=== PATIENT | male | born 1990 | race Caucasian/White ===

== ENCOUNTER 2019-02-27 09:40 | Outpatient (CLI) | payer OTHER, MEDICAID, SELFPAY ==
[2019-02-27] VITALS (8 sets, daily range): BP systolic 102–127; BP diastolic 59–74; PULSE 54–65; RESP 16; TEMP 36.4; O2SAT 97–100
--- NOTE | 2019-02-27 09:43 | DI.RAD.S_ITS ---
PROCEDURE: PAIN L/S TRANSFORAMINAL INJECT INDICATIONS: RADICULOPATHY FINDINGS: Fluoroscopic spot filming was performed to verify placement of spinal needles at the left L5-S1 level(s), as labeled on the films. Appropriate location(s) of the needle tip(s) was confirmed by injection of iodinated contrast. IMPRESSION: Successful needle tip localization at the left L5-S1 neural foramen for perineural epidural steroid injection. Dictated by: Misael Kam M.D. on 02/27/2019 at 11:44 Approved by: Misael Kam M.D. on 02/27/2019 at 11:45
[2019-02-27] MEDS: MIDAZOLAM 5 MG/5 ML VIAL IV (10:20)
[2019-02-27] MEDS: fentaNYL 100 MCG/2 ML INJ 50 MCG IV (10:20)
[2019-02-27] MEDS: IOPAMIDOL 15 ML VIAL 3 ML INJ (10:28)
[2019-02-27] MEDS: BUPIVACAINE 0.25% (PF) VIAL 2 ML INJ (10:29)
[2019-02-27] MEDS: BETAMETHASONE 30 MG/5 ML MDV 6 MG INJ (10:29)
[2019-02-27] MEDS: DEXAMETHASONE 10 MG/ML VIAL 20 MG INJ (10:29)
--- NOTE | 2019-02-27 10:40 | PC.NURSE ---
pt tolerated procedure well. Able to get off table with standby assist only. Transferred pt to pre procedure room via wheelchair for continued monitoring with Tiffany MILLER.
--- NOTE | 2019-02-27 10:42 | P.PCN_ITS ---
Procedures Date/Time Date of procedure: 02/27/19 Time of procedure: 10:41 General Procedure description: PREOP DIAGNOSIS 1. FORMAINAL STENOSIS WITH LE SYMPTOMS POST OP DIAGNOSIS 1. FORMAINAL STENOSIS WITH LE SYMPTOMS PROCEDURES 1. FLUOROSCOPICALLY GUIDED CONTRAST CONTROLLED TRANSFORAMINAL EPIDURAL STEROID INJECTION - Left L5/S1 PHYSICIAN: Orestes Cárdenas DO INDICATIONS: Ishaan is referred by Dr. Caballero for treatment of HNP with Left LE Symptoms FINDINGS Foraminal Nerve Root Compression secondary to disc disease and facet hypertrophy DESCRIPTION OF PROCEDURE: Following denial of allergy and review of potential side effects and complications, including, but not necessarily limited to, infection, allergic reaction, local tissue breakdown, stroke, temporary or permanent nerve injury, paralysis, and possible , the patient indicated that the patient understood and agreed to proceed. An informed consent document was signed by the patient, witnessed by a nurse, and placed in the patient's chart. Additionally, other tr eatment options including medications, modalities, and physical therapy were reviewed with the patient. After review of previous anaesthesic history and IV conscious sedation the patient was deemed safe to proceed with todays procedure with IV conscious sedation as ASA class II designation. Safety time-out was performed to confirm patient ID, procedure to be performed and site of procedure. IV sedation was accomplished with a combination of 3mg of Versed and 50mcg of Fentanyl was administered by the RN after DO order, titrated to patient comfort during the course of the procedure while the patient remained responsive to all verbal commands In the prone position following sterile prep and drape of the lumbar region, the Left L5/S1 posterior neuroforamen was identified fluoroscopically. The skin was anesthetized via a 25-gauge 1.5-inch needle with 1% lidocaine solution. At this point, a 25-gauge 3.5-inch spinal needle was atraumatically introduced and advanced under fluoroscopic guidance through the posterior Left L5/S1 neuroforamen to approximately the anterior aspect of the canal. Depth was confirmed on lateral view. Following negative aspiration, injection of approximately 1.5 cc of Isovue 200 under live fluoroscopy in the AP view confirmed excellent flow along the nerve root, into the epidural space without vascular or intrathecal uptake observed Radiological data, including multiple fluoroscopic views of the lumbosacral spine, reveal a spinal needle at the Left L5/S1 posterior neuroforamen. Subsequent views show flow of contrast material flowing superiorly and inferiorly along the nerve root confirming epidural flow. Subsequently, a test dose of 1.5 cc of 1% lidocaine solution was administered and patient was observed for two minutes for signs or symptoms of complications, including abdominal pain, shortness of breath, bilateral upper or lower extremity weakness, nausea and vomiting, prior to steroid injection. At this point, a total of 2cc or 20mg of dexamethasone was injected without incident. The procedure tolerated the procedure well without signs or symptoms of complications prior to transfer to the recovery area continued monitoring without incident. The patient was then transferred to the recovery area where they were observed for an appropriate time after the injection. The patient reported a VAS score of 7 prior to the procedure and a post-procedure VAS of 0. Total Fluoroscopy Time: 20.9 seconds Total Conscious Sedation Time: 24min POST OP INSTRUCTIONS The patient was provided a Pain Log to continue to record their response to the target-specific procedure prior to follow-up visit with their referring physician. Additionally, specific post-injection care instructions and a contact number to our office were provided if concerns arise regarding possible complications associated with the procedure are suspected. Orestes Cárdenas DO Complications: none
--- NOTE | 2019-02-27 10:47 | PC.NURSE ---
ACCEPTED CARE OF PT IN STABLE CONDITION UPON ARRIVAL TO POST PROC AREA
== END 2019-02-27 11:03 | disposition home or self-care (01) ==
LOC: RAD 09:43
PROVIDERS: PCP Family Medicine; Visit Provider Physical Medicine & Rehabilitation
DX: M48.07 Spinal stenosis, lumbosacral region (principal); M51.17 Intervertebral disc disorders with radiculopathy, lumbosacral region
CPT/HCPCS: 64483; 99152; J0702; J1100; J2250; J3010